=== PATIENT | female | born 1980 | race Caucasian/White ===

== ENCOUNTER 2017-11-12 11:10 | Emergency (ER) | payer MEDICAID ==
[2017-11-12] MEDS: DIPHENHYDRAMINE 25 MG CAP PO (12:35)
[2017-11-12] MEDS: METHYLPREDNISOLONE 125 MG INJ IM (12:35)
[2017-11-12] MEDS: FAMOTIDINE 20 MG TAB PO (12:35)
[2017-11-12 12:39] LABS: URINE BLOOD (Dip) POC Negative (NEGATIVE); URINE GLUCOSE (Dip) POC Negative (NEGATIVE); URINE KETONES (Dip) POC 1+ (NEGATIVE); URINE LEUKOCYTE EST (Dip) POC Negative (NEGATIVE); URINE NITRITE (Dip) POC Positive (NEGATIVE); URINE TOTAL PROTEIN POC 2+ (NEGATIVE)
[2017-11-12 12:39] LABS: URINE PH (Dip) POC 5.5 (5.0-8.5)
== END 2017-11-12 13:30 | disposition home or self-care (01) ==
LOC: FTE 11:10
DX: N39.0 Urinary tract infection, site not specified (principal); L50.9 Urticaria, unspecified
CPT/HCPCS: 81003; 81025; 96372; 99284-25